=== PATIENT | female | born 1970 | race Hispanic/Latino ===

== ENCOUNTER 2017-07-25 09:53 | Emergency (ER) | payer OTHER ==
[2017-07-25 10:49] VITALS: BP 122/79; PULSE 62; RESP 18; TEMP 98.2; O2SAT 98
[2017-07-25] MEDS ORDERED: Amoxicillin-Clav 875-125 mg Tab PO STA (10:55)
--- NOTE | 2017-07-25 11:13 | ED PDOC ---
HPI: General Adult Time Seen by Provider: 07/25/17 11:11 Chief Complaint (Nursing): Abnormal Skin Integrity Chief Complaint (Provider): facial injury History Per: Patient (46 y/o female here for evaluation of dogbite that occurred last night at midnight. States dog bite her along right side of face and she believes she bit down left lip. No LOC.) Past Medical History Reviewed: Historical Data, Nursing Documentation, Vital Signs Vital Signs: Last Vital Signs Temp 98.2 F 07/25/17 10:45 Pulse 62 07/25/17 10:45 Resp 18 07/25/17 10:45 BP 122/79 07/25/17 10:45 Pulse Ox 98 07/25/17 11:17 - Medical History PMH: Hypothyroidism - Family History Family History: States: No Known Family Hx - Immunization History Hx Tetanus Toxoid Vaccination: Yes - Home Medications Home Medications: Ambulatory Orders Medication Instructions Recorded Amoxicillin/Clavulanate [Augmentin 1 tab PO BID #14 tab 07/25/17 875 MG-125 MG] Naproxen 375 mg PO Q8 PRN #21 tablet 07/25/17 oxyCODONE/Acetaminophen [Percocet 1 ea PO Q6 PRN #10 tab 07/25/17 5/325 mg Tab] - Allergies Allergies/Adverse Reactions: Allergies Allergy/AdvReac Type Severity Reaction Status Date / Time No Known Allergies Allergy Verified 07/25/17 10:44 Review of Systems ROS Statement: Except As Marked, All Systems Reviewed And Found Negative Physical Exam - Reviewed Nursing Documentation Reviewed: Yes Vital Signs Reviewed: Yes - Physical Exam Appears: Positive for: Well, Non-toxic, No Acute Distress Head Exam: Positive for: ATRAUMATIC, NORMAL INSPECTION, NORMOCEPHALIC Skin: Positive for: Normal Color (1.25 cm avusion flap laceration right side of face. ), Warm Eye Exam: Positive for: Normal appearance, EOMI (patient notes pain with EOM but able to perform; no double vision on exam), PERRL ENT: Positive for: Normal ENT Inspection, Other (8 mm lip laceration with small involvement of left upper lip) Neck: Positive for: Normal, Painless ROM Cardiovascular/Chest: Positive for: Regular Rate, Rhythm Respiratory: Positive for: CNT, Normal Breath Sounds Gastrointestinal/Abdominal: Positive for: Normal Exam, Bowel Sounds, Soft Back: Positive for: Normal Inspection Extremity: Positive for: Normal ROM Neurologic/Psych: Positive for: Alert, Oriented - ECG O2 Sat by Pulse Oximetry: 98 - Progress ED Course And Treament: d/w Dr. Uri Davalos. Will see patient in ED Seen by Dr. Uri Davalos in ED with wounds repaired by him CT orbital report reviewed with him. Patient to f/u with him outpatient. CT facial/orbital: IMPRESSION: Depressed right orbital floor fracture with herniation of inferior rectus muscle. Please correlate with examination for possible upward gaze diplopia. Small depressed right lamina papyracea fracture. Right orbital emphysema. percocet 5/325 mg x 1 dose Disposition - Clinical Impression Clinical Impression: Orbital fracture, Dog bite of face - Patient ED Disposition Is Patient to be Admitted: No - Disposition Disposition: Routine/Home Disposition Time: 14:45 Condition: FAIR Additional Instructions: F/U WITH DR. URI DAVALOS FOR FURTHER EVALUATION OF ORBITAL FX. F/U WITH OPTHALMOLOGY FOR FURTHER EVALUATION OF VISION. RETURN FOR ANY CHANGE IN VISION/OR DOUBLE VISION. Prescriptions: Amoxicillin/Clavulanate [Augmentin 875 MG-125 MG] 1 tab PO BID #14 tab Naproxen 375 mg PO Q8 PRN #21 tablet PRN Reason: Pain, Moderate (4-7) oxyCODONE/Acetaminophen [Percocet 5/325 mg Tab] 1 ea PO Q6 PRN #10 tab PRN Reason: Pain, Severe (8-10) Instructions: Skull and Facial Fractures (DC), Laceration Repair With Stitches (DC), Animal Bites (DC) Forms: [employer] (Slovak), [facility] ED School/Work Excuse
[2017-07-25] MEDS ORDERED: Amoxicillin-Clav 875-125 mg Tab PO ONE (11:15)
[2017-07-25] MEDS ORDERED: Lidocaine 2% w Epi 1:100,000 Inj IJ ONE ×2 (11:16→11:23)
[2017-07-25] MEDS ORDERED: Povidone Iodine Topical 10% Sol TOP ONE (11:17)
[2017-07-25] MEDS ORDERED: Povidone Iodine Topical 10% Sol ONE (11:23)
--- NOTE | 2017-07-25 14:13 | CT ---
PROCEDURE: CT MAXILLOFACIAL BONES WITHOUT CONTRAST HISTORY: facial injury COMPARISON: None TECHNIQUE: Contiguous axial CT images of the maxillofacial bones were obtained. Coronal and sagittal reformats were generated. Radiation dose: Total exam DLP = 716.53 mGy-cm. This CT exam was performed using one or more of the following dose reduction techniques: Automated exposure control, adjustment of the mA and/or kV according to patient size, and/or use of iterative reconstruction technique. FINDINGS: NASAL BONES: Unremarkable. ORBITS: Inferiorly displaced right orbital floor fracture. There is herniation of a portion of the inferior rectus muscle as well as orbital fat through the orbital floor defect. There is right orbital emphysema. The globe is rounded. There is a small depressed right lamina papyracea fracture of indeterminate age. There is no proptosis. There is no evidence of intraorbital hemorrhage. Unremarkable left orbit. PARANASAL SINUSES/ MASTOIDS: Small amount of dependent fluid in the right maxillary antrum, likely blood. Paranasal sinuses otherwise unremarkable. MAXILLA: Right pre maxillary soft tissue ecchymosis. No maxillary fracture. MANDIBLE/ TEMPOROMANDIBULAR JOINTS: Unremarkable. SKULL BASE: Unremarkable. TEMPORAL BONES: Middle ears and mastoid grossly unremarkable. OTHER FINDINGS: None. IMPRESSION: Depressed right orbital floor fracture with herniation of inferior rectus muscle. Please correlate with examination for possible upward gaze diplopia. Small depressed right lamina papyracea fracture. Right orbital emphysema.
[2017-07-25] MEDS ORDERED: Oxycodone/Acetaminophen 5/325 mg Tab PO ONE (14:38)
--- NOTE | 2017-08-01 09:06 | OP ---
PROCEDURE DATE: 07/25/2017 PREOPERATIVE DIAGNOSES: 1. A 3 cm x 0.5 cm skin avulsion on right lower eyelid. 2. Left lateral upper lip 1.8 cm stellate laceration. 3. Right orbital floor blowout fracture. 4. Right medial orbital wall fracture. POSTOPERATIVE DIAGNOSES: 1. A 3 cm x 0.5 cm skin avulsion on right lower eyelid. 2. Left lateral upper lip 1.8 cm stellate laceration. 3. Right orbital floor blowout fracture. 4. Right medial orbital wall fracture. PROCEDURE PERFORMED: 1. Adjacent tissue transfer, total of 3 cm2 from the right lower eyelid wound closure. 2. Complex repair of 1.8 cm left upper lip laceration at the vermilion border. 3. Debridement of necrotic skin at open fracture side of right orbital blowout floor. 4. Closed treatment right orbital fracture. SURGEON: Risa Parikh MD TYPE OF ANESTHESIA: Regional: 1. Right infraorbital nerve block. 2. Left infraorbital nerve block. INDICATIONS FOR PROCEDURE: Please refer to my separately dictated ER consultation for history and physical. DESCRIPTION OF PROCEDURE: A 1% lidocaine plain was used in bilateral infraorbital nerve block and intraoperative analgesia. After allowing for sufficient time for the anesthetic to take effect , open wounds are thoroughly irrigated with normal saline and IV Betadine. The areas were prepped and draped in the usual clean and sterile manner. lower eyelid which was overlying the orbital floor blowout fracture. There was devitalized necrotic orbital skin that was not viable and underlying orbicularis oculi muscle was partially lacerated. I had to significantly debride the skin to change the orientation of the skin so that it lower eyelid crease type incision as supposed to stellate laceration this was done with similar technique. I then lined up orbicularis oculi muscle in interrupted fashion with 5-0 Monocryl suture from the skin and given 3 cm adjacent tissue transfer after making and used 5-0 Monocryl to line up approximated the muscle and the deep dermis in interrupted fashion. I then closed the epidermis in interrupted fashion with 6-0 Prolene suture. I then addressed the left upper debridement that was done more so than a normal debridement of the type of procedure. I then addressed to the left upper and lateral lip across the vermilion border laceration. I debrided the skin edges with scissor technique and thoroughly irrigated the wound, prepped and draped it orbicularis renee muscle with 4-0 Vicryl suture in interrupted fashion. Line was approximated with deep dermis submucosa in interrupted fashion with 5-0 Monocryl suture and then closed the mucosa in interrupted fashion with 5-0 chromic sutures and then lined up the vermilion border and the epidermis in interrupted fashion with 6-0 Prolene sutures. At this point, I treated her orbital floor fracture in closed manner with manipulation. It was explained to the patient to take oral antibiotic and not to go and to take ice and elevate decrease edema. Follow up with an mold inspector for clearance and to see in early next week so we can schedule her wound care with her orbital floor fracture. The signs of infection need to take oral antibiotics were discussed with the patient and the fact that and all questions were answered. Risa Parikh MD
--- NOTE | 2017-08-01 09:07 | CON ---
EMERGENCY ROOM CONSULTATION DATE: 07/25/2017 SURGEON: Risa Parikh MD HISTORY OF PRESENT ILLNESS: This is a healthy 46-year-old female who was bitten by her dog dog and she sustained lacerations and involved in to right lower eyelid as well as to her left upper lateral lip involved the muscle and the patient also had orbital floor blowout fracture on the right and the medial lamina papyracea fracture. I was called in emergently by the emergency room for this dog bite with multiple lacerations and the facial fracture and I came into evaluate and treat the patient. On her right lower eyelid, there was a 3 cm long x 0.5 cm area of necrotic skin that needed to be debrided flat closure. The underlying muscle was approximated and on the left upper lateral lip, there was an 1.8 cm stellate laceration involving the orbicularis renee muscle. There are no other intraoral lacerations. The patient did have some tenderness in the right inferior orbital rim and the medial orbital rim, but there are no bony step-off and nasal bones are nontender and light reflex of the tip straight and there were some paresthesias on the right infraorbital nerve distribution. There was dog bite, I explained to the patient and her that she is at high risk for infection and closure; however with adequate debridement and irrigation and complementary oral antibiotic is appropriate to close these wounds significant and the patient also had orbital floor fracture, this was blowout, which measured 1.2 cm at its maximum width as well as the medial orbital fracture of the lamina papyracea. The patient also had some subcutaneous on exam. I explained to the patient and her after edema goes down, the patient needs to follow up in the office and likely needs to have open reduction and internal fixation of her orbital floor fracture on the right side within the next two weeks . The patient understood the risks and benefits and wished to proceed. I am now going to dictate a separate operative report. Risa Parikh MD
== END 2017-07-25 15:27 | disposition home or self-care (01) ==
LOC: H.ER 09:53
DX: S02.81XA Fracture of other specified skull and facial bones, right side, initial encounter for closed fracture (principal); W54.0XXA Bitten by dog, initial encounter; S01.85XA Open bite of other part of head, initial encounter; S01.511A Laceration without foreign body of lip, initial encounter